=== PATIENT | female | born 1990 | race Caucasian/White ===

== ENCOUNTER 2016-06-18 20:26 | Emergency (ER) | payer OTHER ==
[~2016-06-18] VITALS: Ht 152.4 cm; Wt 63.5 kg
[2016-06-18 21:07] VITALS: Ht 152.4 cm; Wt 63.5 kg
[2016-06-18] MEDS ORDERED: TRAM50TA2 PO (21:33)
--- NOTE | 2016-06-18 22:15 | ERD ---
ER Documentation Chief Complaint Date/Time DATE: 06/18/16 TIME: 22:13 Chief Complaint Right jaw pain HPI 26-year-old female presents to emergency department for complaints of right jaw , mandibular joint pain started 3 weeks ago. Patient described the pain as sharp pain, stiffness, worse upon opening and closing the mouth. Patient denies any swelling. Patient denies any problems with hearing. Patient denies any foreign body in the ear. Patient denies any problems with hearing. Patient denies any fever or chills. Patient took some ibuprofen for pain with mild relief. ROS All systems reviewed and are negative except as per history of present illness. Medications Home Meds Active Scripts Tramadol HCl (Tramadol HCl) 50 Mg Tablet, 50 MG PO Q6 Y for SEVERE PAIN LEVEL 7- 10, #20 TAB Prov:ALLEGRA CHISHOLM NP 06/18/16 Allergies Allergies: Coded Allergies: No Known Allergy (Unverified , 06/18/16) PMhx/Soc Medical and Surgical Hx: pt denies Medical Hx, pt denies Surgical Hx FmHx Family History: No coronary disease, No diabetes, No other Physical Exam Vitals Vital Signs Date Time Temp Pulse Resp B/P Pulse Ox O2 Delivery O2 Flow Rate FiO2 06/18/16 21:07 99.0 80 18 134/85 100 Physical Exam GENERAL: The patient is well developed and appropriate for usual state of health, in no apparent distress. HEENT: Atraumatic. Ears: Normal tympanic membrane, no erythema or bulging. No ear canal swelling. No ear discharge. Nose: normal nasal turbinates, no erythema or swelling. Normal nasal discharge. Throat: oropharynx clear. No tonsillar swelling or tonsillar exudates. No lymphadenopathy. Tenderness on palpation on the right temporomandibular joint area, able to open and close the mouth without any restriction. No swelling noted, no erythema noted. CHEST: Clear to auscultation bilaterally. There are no rales, wheezes or rhonchi. HEART: Regular rate and rhythm. No murmurs, clicks, rubs or gallops. No S3 or S4. ABDOMEN: Soft, nontender and nondistended. Good bowel sounds. No rebound or guarding. No gross peritonitis. No gross organomegaly or masses. No Walker sign or McBurney point tenderness. BACK: No midline or flank tenderness. EXTREMITIES: Equal pulses bilaterally. There is no peripheral clubbing, cyanosis or edema. No focal swelling or erythema. Full range of motion. Grossly neurovascularly intact. NEURO: Alert and oriented. Cranial nerves 2-12 intact. Motor strength in all 4 extremities with 5/5 strength. Sensation grossly intact. Normal speech and gait. SKIN: There is no apparent rash or petechia. The skin is warm and dry. HEMATOLOGIC AND LYMPHATIC: There is no evidence of excessive bruising or lymphedema. No gross cervical, axillary, or inguinal lymphadenopathy. Procedures/MDM Medical decision making: Patient's symptoms are consistent with temporomandibular joint arthralgia, no symptoms of otitis media, otitis externa or mastoiditis. No cellulitis noted. No symptoms of any foreign body, no tympanic membrane perforation noted. No symptoms of sepsis at this time. Patient was given prescription for tramadol for severe pain, is advised to continue taking ibuprofen for mild to moderate pain. Patient was advised to see a dentist or ENT specialist for further management, patient is advised to return to emergency department for any worsening symptoms. Departure Diagnosis: Primary Impression: TMJ arthralgia Laterality: right Qualified Code: M26.621 - Arthralgia of right temporomandibular joint Condition: Stable Patient Instructions: Tmj Syndrome ALLEGRA CHISHOLM NP Jun 18, 2016 22:15
== END 2016-06-18 21:35 | disposition home or self-care (01) ==
LOC: E/R 20:26
DX: M26.621 Arthralgia of right temporomandibular joint (principal)
CPT/HCPCS: 99283

== ENCOUNTER 2017-06-02 09:36 | Emergency (ER) | END 2017-06-02 18:37 | disposition home or self-care (01) ==

== ENCOUNTER 2018-01-19 19:04 | Emergency (ER) | END 2018-01-19 20:31 | disposition home or self-care (01) ==

== ENCOUNTER 2018-06-16 22:34 | Emergency (ER) | payer OTHER ==
[~2018-06-16] VITALS: Ht 165.1 cm; Wt 62.0 kg
[~2018-06-16 22:34] MED LIST: AMOX500C2 PO; AZIT250T PO; BENZ-6 PO; D-ME473S2 PO; IBUP-1542 PO; PHEN177S43 MT; TRAM50TA2 PO
[2018-06-16 22:52] VITALS: Ht 165.1 cm; Wt 62.0 kg
[2018-06-17] MEDS ORDERED: CEFTRIAXONE 1 GM/50 ML (PMX) 50 ML IVPB STA (00:45)
[2018-06-17] MEDS ORDERED: SOD CHLORIDE 0.9% 1,000 ML IV STA (00:45)
[2018-06-17] MEDS ORDERED: KETOROLAC 30 MG INJ IV STA (00:45)
--- NOTE | 2018-06-17 00:47 | ERD ---
ER Documentation Chief Complaint Chief Complaint INTERMITTENT FEVER WITH SORE THROAT X 2 WEEK, + VOMITING HPI 28-year-old female, previously healthy, presents the emergency department, comp laining of 1 week with worsening of sore throat, fever, headache and general malaise. The patient denies upper respiratory symptoms, no abdominal pain, no shortness of breath, no difficulty swallowing. The patient has been taking [id number] medication with mild improvement of the pain. ROS All systems reviewed and are negative except as per history of present illness. Medications Home Meds Active Scripts Ibuprofen* (Motrin*) 600 Mg Tab, 600 MG PO Q8, #20 TAB Prov:JANUSZ PITTMAN MD 06/17/18 Azithromycin* (Zithromax*) 250 Mg Tablet, 250 MG PO .ZPACK DIRECTED, #6 TAB TAKE 500 MG (2 TABS) THE FIRST DAY THEN 250 MG (1 TAB) DAYS 2-5 Prov:JANUSZ PITTMAN MD 06/17/18 Phenol* (Chloraseptic* [place]) 177 Ml [place].pump, 2 SPRAY MT Q2H PRN for SORE THROAT, #1 BOTTLE Prov:DEIDRE MCCAIN PA-C 01/19/18 Ibuprofen* (Motrin*) 600 Mg Tab, 600 MG PO Q6, #30 TAB Prov:DEIDRE MCCAIN PA-C 01/19/18 Amoxicillin* (Amoxicillin*) 500 Mg Cap, 500 MG PO TID for 10 Days, CAP Prov:DEIDRE MCCAIN PA-C 01/19/18 Ibuprofen* (Motrin*) 600 Mg Tab, 600 MG PO Q6, #30 TAB Prov:CLEMENTE COATES PA-C 06/02/17 Benzonatate* (Tessalon Perle*) 100 Mg Capsule, 100 MG PO Q8H PRN for COUGH, #20 CAP Prov:CLEMENTE COATES PA-C 06/02/17 Azithromycin* (Zithromax*) 250 Mg Tablet, 250 MG PO .ZPACK DIRECTED, #6 TAB TAKE 500 MG (2 TABS) THE FIRST DAY THEN 250 MG (1 TAB) DAYS 2-5 Prov:CLEMENTE COATES PA-C 06/02/17 Dextromethorphan Hb-Promethazine Hcl* (Promethazine DM* Syrup) 473 Ml Syrup, 5 ML PO Q6 PRN for COUGH, #4 OZ Prov:CLEMENTE COATES PA-C 06/02/17 Tramadol HCl (Tramadol HCl) 50 Mg Tablet, 50 MG PO Q6 PRN for SEVERE PAIN LEVEL 7-10, #20 TAB Prov:ALLEGRA CHISHOLM NP 06/18/16 Allergies Allergies: Coded Allergies: No Known Allergy (Unverified , 01/19/18) PMhx/Soc Hx Alcohol Use: No Hx Substance Use: No Hx Tobacco Use: No Physical Exam Vitals Vital Signs Date Temp Pulse Resp B/P (MAP) Pulse Ox O2 O2 Flow FiO2 Time Delivery Rate 06/17/18 98.7 88 19 108/66 98 Room Air 02:16 (80) 06/17/18 102.3 01:12 06/17/18 103.0 110 16 100 00:09 06/16/18 103.0 108 20 130/77 100 22:52 (94) Physical Exam Patient is in moderate distress due to fever, vital signs showed fever. EYES: PERRLA, EOMI, injected sclerae EARS: Canals clear, erythematous tympanic membranes THROAT: Erythematous oropharynx with bilateral exudates NECK: Supple, + tender cervical lymphadenopathy. Full ROM without pain or tenderness. HEART: RRR, no rubs, murmurs, clicks or gallops. LUNGS: Bilateral rhonchi to auscultation. ABDOMEN: Soft, non-tender without masses or hepatosplenomegaly. EXTREMITIES: No edema bilaterally. BACK: Full ROM, no deformity, normal back exam NEURO: Cranial nerves grossly intact, no motor or sensory deficit Results 24 hrs Laboratory Tests Test 06/17/18 01:00 POC Beta HCG, Qualitative NEGATIVE Current Medications Medications Dose Sig/Estefania Start Time Status Last (Trade) Ordered Route PRN Stop Time Admin Dose Reason Admin Sodium 1,000 ml @ Q1H STAT 06/17/18 DC 06/17/18 Chloride 1,000 mls/hr IV 00:45 06/17/18 01:10 01:44 125 mg ONCE ONCE 06/17/18 DC 06/17/18 Methylprednis IV 01:00 06/17/18 01:11 olone Sodium 01:01 Succinate (Solu-Medrol) Ceftriaxone 50 ml @ ONCE STAT 06/17/18 DC 06/17/18 Sodium 100 mls/hr IVPB 00:45 06/17/18 01:11 01:14 Ketorolac 30 mg ONCE STAT 06/17/18 DC 06/17/18 Tromethamine IV 00:45 06/17/18 01:11 (Toradol) 00:52 650 mg ONCE ONCE 06/17/18 DC 06/17/18 Acetaminophen PO 01:00 06/17/18 01:12 (Tylenol 01:01 Liquid) Procedures/MDM Differential diagnosis include but not limited to: Tonsillar/pharyngeal infection bacterial/viral/fungal, parotitis, allergies, GERD. Less likely peritonsillar abscess, retropharyngeal abscess. No signs of upper respiratory obstruction Physical examination and clinical presentation consistent most likely with acute suppurative tonsillitis. Centor criteria 4/5. During the ED course the patient remained stable, fever resolved with medications given in the ER, no new complaints. Clinical impression discussed with the patient who agrees with management. The patient is stable to be treated outpatient and will be discharged home with a Rx for antibiotic and ibuprofen. Some side effects of prescribed medications (headache, rash, nausea, vomiting, diarrhea, drowsiness, habituation, bleeding, hypertension, interactions with other medications) were reviewed. The patient was instructed to follow up with the primary care provider in the next 48h. If symptoms persist, worsen or new symptoms develop, then patient should return to the ED immediately. Disclaimer: Inadvertent spelling and grammatical errors are likely due to EHR/dictation software use and do not reflect on the overall quality of patient care. Also, please note that the electronic time recorded on this note does not necessarily reflect the actual time of the patient encounter. Departure Diagnosis: Primary Impression: Acute suppurative tonsillitis Condition: Stable Additional Instructions: Thank you very much for allowing us to participate in your care. Your health and safety is our top priority at [facility]. Call your primary care doctor TOMORROW for an appointment during the next 2-4 days and bring all the information and medications prescribed. Have prescriptions filled and follow precisely the directions on the label. If the symptoms get worse and your provider is unavailable, return to the Emergency Department immediately. JANUSZ PITTMAN MD Jun 17, 2018 00:47
[2018-06-17] MEDS ORDERED: METHYLPREDNISOLONE 125 MG INJ IV ONE (01:00)
[2018-06-17] MEDS ORDERED: ACETAMINOPHEN 650MG/20.3ML CUP PO ONE (01:00)
[2018-06-17] MEDS ORDERED: IBUP-1542 PO (01:47)
[2018-06-17] MEDS ORDERED: AZIT250T PO (01:47)
[2018-06-17 02:16] VITALS: BP 108/66; PULSE 88; RESP 19
== END 2018-06-17 02:28 | disposition home or self-care (01) ==
LOC: FTE 22:34
DX: J03.90 Acute tonsillitis, unspecified (principal)
CPT/HCPCS: 81025; 96365; 96375; 99284; J0696; J1885; J2930; J7030